=== PATIENT | female | born 1960 | race Caucasian/White ===

== ENCOUNTER → 2020-07-05 | Outpatient (CLI) | payer OTHER | LOC: LAB 16:15 → LAB SHORT 16:15 | PROVIDERS: Nurse Practitioner Family | DX: Z12.4 Encounter for screening for malignant neoplasm of cervix (principal) | CPT/HCPCS: G0145 ==

== ENCOUNTER → 2022-05-22 | Outpatient (CLI) | payer OTHER ==
[2022-05-27 16:10] LABS: HPV 16 Negative (Negative); HPV 18 Negative (Negative); HPV OTHER HR TYPES Negative (Negative)
== END | disposition home or self-care (01) ==
LOC: LAB SHORT 14:20 → LAB 14:20
PROVIDERS: Family Medicine
DX: Z01.419 Encounter for gynecological examination (general) (routine) without abnormal findings (principal)
CPT/HCPCS: 87624; G0145

== ENCOUNTER 2023-01-13 07:38 | Day surgery (SDC) | payer OTHER | END 2023-01-13 07:55 | disposition home or self-care (01) | LOC: ORSCSDS 07:38 | DX: Z12.11 Encounter for screening for malignant neoplasm of colon (principal); Z53.9 Procedure and treatment not carried out, unspecified reason | CPT/HCPCS: J2704; J7120 ==

== ENCOUNTER 2024-10-19 10:15 | Day surgery (SDC) | payer OTHER ==
[~2024-10-19] VITALS: Ht 160 cm; Wt 63.0 kg
[2024-10-19] VITALS (12 sets, daily range): BP systolic 117–136; BP diastolic 63–99
[~2024-10-19 10:15] MED LIST: ALLEGRA ALLERG180 MG PO; ATORVASTATIN CA80 M1 PO; CeFAZolin Sodium 2,000 MG in NS 100 ML IV SCH; EZET10; Lactated Ringer's 1,000 ML IV SCH; MULVITA PO; SERT100 PO; Vitamin D1000 UNI1 PO
[2024-10-19] MEDS ORDERED: Ondansetron HCl 2 MG / ML 2ML Vial ONE (10:27)
[2024-10-19] MEDS ORDERED: FentaNYL Citrate 50 MCG/ML 5 ML Injection ONE (10:27)
[2024-10-19] MEDS ORDERED: Dexamethasone Sod Phos 10 MG/ML 1ML VIAL ONE (10:27)
[2024-10-19] MEDS ORDERED: propofoL 20 ML IV ONE (10:27)
[2024-10-19] MEDS ORDERED: ALBU90OI INH (11:22)
[2024-10-19] MEDS ORDERED: Bupivacaine 0.5% HCl 5 MG/ML 30MLVIAL ONE (11:42)
[2024-10-19] MEDS ORDERED: Midazolam HCl 1MG / ML 2ML Vial IV ONE (11:45)
[2024-10-19] MEDS ORDERED: Midazolam HCl 1MG / ML 2ML Vial ONE (11:51)
[2024-10-19] MEDS ORDERED: Glycopyrrolate 0.2 MG/ML 5ML VIAL ONE (12:17)
[2024-10-19] MEDS ORDERED: HYDROcodone 5-APAP 325 TAB PO PRN (12:50)
--- NOTE | 2024-10-19 13:09 | NUR ---
PT TO DAY SURGERY STEP DOWN WITH MEDIPORT PLACEMENT FROM PACU; BEDSIDE REPORT RECEIVED. PT IS AWAKE, ALERT AND ORIENTED; ABLE TO MOVE SELF IN BED. PT HAS NO COMPLAINTS AT THIS TIME.
--- NOTE | 2024-10-19 13:10 | NUR ---
PT HAS 2 INCISIONS, ONE ON LOWER RIGHT SIDE OF NECK AND ONE ON UPPER RIGHT CHEST. BOTH ARE CLOSED WITH EXOFIN AND ARE C/D/I.
--- NOTE | 2024-10-19 13:23 | NUR ---
NO CHANGE IN INCISIONS. PT TOLERATING PO FLUIDS WELL.
--- NOTE | 2024-10-19 13:34 | NUR ---
Discharge instructions reviewed with patient. Patient verbalizes understanding. Copy given to patient to take home. Patient States Post-Procedure ride home has been arranged. Ice pack given to pt
--- NOTE | 2024-10-19 14:01 | NUR ---
PT TOLERATING CHIPS WELL
--- NOTE | 2024-10-19 14:10 | NUR ---
Patient up to Ambulate independently. Gait steady. Up to void
--- NOTE | 2024-10-19 14:16 | NUR ---
Discharged via wheelchair to private car for ride home.
== END 2024-10-19 14:18 | disposition home or self-care (01) ==
LOC: ORSCMMR 10:15 → ORD 11:45 → ORSCMMR 11:45 → ORD 10-21 11:45
PROVIDERS: Surgery
PROC: 05HM33Z Insertion of Infusion Device into Right Internal Jugular Vein, Percutaneous Approach (ICD-10-PCS; principal; 2024-10-19 11:45)
PROC: 0JH63WZ Insertion of Totally Implantable Vascular Access Device into Chest Subcutaneous Tissue and Fascia, Percutaneous Approach (ICD-10-PCS; principal; 2024-10-19 11:45)
PROC: B543ZZA Ultrasonography of Right Jugular Veins, Guidance (ICD-10-PCS; principal; 2024-10-19 11:45)
DX: C50.812 Malignant neoplasm of overlapping sites of left female breast (principal); Z17.0 Estrogen receptor positive status [ER+]; Z17.21 Progesterone receptor positive status; Z17.32 Human epidermal growth factor receptor 2 negative status; Z80.3 Family history of malignant neoplasm of breast; Z80.0 Family history of malignant neoplasm of digestive organs; E78.5 Hyperlipidemia, unspecified; J45.909 Unspecified asthma, uncomplicated; F32.A Depression, unspecified; F90.9 Attention-deficit hyperactivity disorder, unspecified type; Z79.899 Other long term (current) drug therapy
CPT/HCPCS: 77001; A9270; C1788; J0690; J1100; J1642; J2250; J2405; J2704; J3010; J7120